=== PATIENT | female | born 1955 | race Caucasian/White ===

== ENCOUNTER 2017-08-08 11:23 | Emergency (ER) | payer SELFPAY ==
[~2017-08-08] VITALS: Ht 154.9 cm; Wt 91.0 kg
[2017-08-08 12:00] LABS: EOSINOPHILS % 1.4 % (0.0-5.0); HEMATOCRIT. 40.1 % (36.0-48.0); HEMOGLOBIN. 13.7 g/dL (12.0-16.0); LYMPHOCYTES % 49.7 % (20.0-50.0); MEAN CORPUSCULAR HEMOGLOBIN 30.8 pg (28.0-32.0); MEAN CORPUSCULAR VOLUME 89.8 fL (81.0-99.0); MEAN PLATELET VOLUME 8.2 fl (7.4-10.4); MONOCYTES % 8.8 % (2.0-8.0); NEUTROPHILS % 39.1 % (40.0-76.0); PLATELET 228 x1000/uL (130-400); RED BLOOD CELL COUNT 4.46 mill/uL (4.2-5.4); RED CELL DISTRIBUTION WIDTH 12.5 % (11.6-14.6)
[2017-08-08 12:06] LABS: PROTHROMBIN TIME 10.3 sec (9.4-11.6)
[2017-08-08 12:07] LABS: CHLORIDE 106 mEq/L (98-107)
[2017-08-08 12:15] LABS: CARBON DIOXIDE 28 mEq/L (21-32)
[2017-08-08] MEDS ORDERED: SODIUM CHLORIDE 0.9% 1,000 ML IV ONE (12:24)
[2017-08-08] MEDS ORDERED: KETOROLAC 30MG/ML VIAL IV STA (12:24)
[2017-08-08 14:30] VITALS: BP 154/88
[2017-08-08] MEDS ORDERED: HYDROCODONE/ACETAMINOPHEN 5/325MG TABLET PO ONE (14:30)
== END 2017-08-08 16:16 | disposition home or self-care (01) ==
LOC: ER 11:29
DX: S09.8XXA Other specified injuries of head, initial encounter (principal); R51 Headache; M54.2 Cervicalgia; R03.0 Elevated blood-pressure reading, without diagnosis of hypertension; R94.31 Abnormal electrocardiogram [ECG] [EKG]; Y93.01 Activity, walking, marching and hiking; Y92.512 Supermarket, store or market as the place of occurrence of the external cause; W01.198A Fall on same level from slipping, tripping and stumbling with subsequent striking against other object, initial encounter
CPT/HCPCS: 36415; 70450; 72125; 80053; 85025; 85610; 93005; 96374; 99285; J1885; Z7610; J7030